=== PATIENT | male | born 1975 | race Caucasian/White ===

== ENCOUNTER 2017-12-22 09:40 | Inpatient (IN) | payer BC, OTHER ==
[2017-12-22] MEDS ORDERED: ONDANSETRON 4 MG INJ IV (10:30)
[2017-12-22] MEDS ORDERED: ALBUTEROL/IPRATROPIUM (NEB) 3 ML AMP HHN (15:30)
[2017-12-22] MEDS: morphine 2 MG INJ IV (16:13)
[2017-12-22] MEDS ORDERED: HYDROmorphONE 0.5 MG/0.5 ML SYG IV (17:30)
[2017-12-22] MEDS ORDERED: ACETAMINOPHEN 650 MG SUPP PR (18:00)
[2017-12-22] MEDS ORDERED: MAGNESIUM HYDROXIDE 30ML CUP PO (18:00)
[2017-12-22] MEDS ORDERED: HYDROCODONE/APAP (5/325) TAB PO (18:00)
[2017-12-22] MEDS ORDERED: BISACODYL (EC) 5 MG TAB PO (18:00)
[2017-12-22] MEDS ORDERED: NACL 0.9% 3 ML SYG IV (18:00)
[2017-12-22] MEDS: SOD CHLORIDE 0.9% 1,000 ML IV (18:07)
[2017-12-22] MEDS: HYDROmorphONE 1 MG/ML SYG IV ×2 (18:07→19:57)
[2017-12-22] MEDS: ALBUTEROL/IPRATROPIUM (NEB) 3 ML AMP HHN (20:00)
[2017-12-22] MEDS: ENOXAPARIN 80 MG/0.8 ML SYG SC (21:06)
[2017-12-23] MEDS: HYDROmorphONE 1 MG/ML SYG IV ×2 (00:53→07:31)
[2017-12-23] MEDS: ACETAMINOPHEN 325 MG TAB PO (00:58)
[2017-12-23] MEDS: ALBUTEROL/IPRATROPIUM (NEB) 3 ML AMP HHN ×4 (01:56→21:06)
[2017-12-23] MEDS: HYDROCODONE/APAP (5/325) TAB PO ×3 (05:58→19:19)
[2017-12-23 06:19] LABS: ADD MAN DIFF? NO
[2017-12-23 06:26] LABS: BASOPHILS % 0.2 % (0.0-2.0); EOSINOPHILS % 0.1 % (0.0-7.0); HEMATOCRIT 35.7 % (42.0-52.0); LYMPHOCYTES # 1.8 10^3/ul (0.8-2.9); MEAN CORPUSCULAR HEMOGLOBIN 31.6 pg (29.0-33.0); MEAN CORPUSCULAR HGB CONC 33.6 g/dl (32.0-37.0); MEAN CORPUSCULAR VOLUME 93.9 fl (82.0-101.0); MEAN PLATELET VOLUME 9.4 fl (7.4-10.4); MONOCYTE # 1.4 10^3/ul (0.3-0.9); MONOCYTES % 11.2 % (0.0-11.0); NEUTROPHIL # 9.3 10^3/ul (1.6-7.5); PLATELET COUNT 160 10^3/UL (140-415); POSITIVE DIFF @See below; RED CELL DISTRIBUTION WIDTH 13.3 % (11.5-14.5)
[2017-12-23 06:26] LABS: WHITE BLOOD COUNT 12.5 10^3/ul (4.8-10.8)
[2017-12-23 07:07] LABS: ALANINE AMINOTRANSFERASE 25 IU/L (13-69); ALBUMIN 3.7 g/dl (3.3-4.9); ALBUMIN/GLOBULIN RATIO 1.27; ALKALINE PHOSPHATASE 54 IU/L (42-121); ANION GAP 15 (8-16); ASPARTATE AMINO TRANSFERASE 19 IU/L (15-46); BLOOD UREA NITROGEN 10 mg/dl (7-20); CALCIUM 8.5 mg/dl (8.4-10.2); CARBON DIOXIDE 26 mmol/L (21-31); CHLORIDE 102 mmol/L (97-110); CREATININE 0.81 mg/dl (0.61-1.24); GLUCOSE 110 mg/dl (70-220); POTASSIUM 4.5 mmol/L (3.5-5.1); SODIUM 138 mmol/L (135-144); TOTAL PROTEIN 6.6 g/dl (6.1-8.1)
[2017-12-23] MEDS: ENOXAPARIN 80 MG/0.8 ML SYG SC ×3 (08:14→21:14)
[2017-12-23] MEDS: SOD CHLORIDE 0.9% 1,000 ML IV (16:50)
[2017-12-23] MEDS: ZOLPIDEM 5 MG TAB PO (22:39)
[2017-12-24] MEDS: ALBUTEROL/IPRATROPIUM (NEB) 3 ML AMP HHN ×4 (01:23→20:26)
[2017-12-24] MEDS: HYDROmorphONE 1 MG/ML SYG IV (04:45)
[2017-12-24 05:04] LABS: ADD MAN DIFF? NO
[2017-12-24 05:13] LABS: WHITE BLOOD COUNT 8.9 10^3/ul (4.8-10.8)
[2017-12-24 05:13] LABS: BASOPHILS % 0.1 % (0.0-2.0); EOSINOPHILS % 0.4 % (0.0-7.0); HEMOGLOBIN 11.2 g/dl (14.0-18.0); LYMPHOCYTES # 1.3 10^3/ul (0.8-2.9); MEAN CORPUSCULAR HEMOGLOBIN 30.5 pg (29.0-33.0); MEAN CORPUSCULAR HGB CONC 32.9 g/dl (32.0-37.0); MEAN CORPUSCULAR VOLUME 92.6 fl (82.0-101.0); MEAN PLATELET VOLUME 9.5 fl (7.4-10.4); MONOCYTE # 0.9 10^3/ul (0.3-0.9); MONOCYTES % 9.8 % (0.0-11.0); NEUTROPHIL # 6.7 10^3/ul (1.6-7.5); NEUTROPHILS % 75.3 % (39.0-77.0); PLATELET COUNT 167 10^3/UL (140-415); RED BLOOD COUNT 3.67 10^6/ul (4.70-6.10); RED CELL DISTRIBUTION WIDTH 12.9 % (11.5-14.5)
[2017-12-24 05:24] LABS: INR 1.17; PROTIME 15.1 Sec (11.9-14.9); PT RATIO 1.2
[2017-12-24 05:34] LABS: PHOSPHORUS 2.7 mg/dl (2.5-4.9)
[2017-12-24 05:34] LABS: MAGNESIUM 2.1 mg/dl (1.7-2.5)
[2017-12-24 05:37] LABS: ANION GAP 15 (8-16); BLOOD UREA NITROGEN 8 mg/dl (7-20); CALCIUM 8.3 mg/dl (8.4-10.2); CARBON DIOXIDE 26 mmol/L (21-31); CHLORIDE 101 mmol/L (97-110); CREATININE 0.74 mg/dl (0.61-1.24); GLUCOSE 96 mg/dl (70-220); POTASSIUM 4.3 mmol/L (3.5-5.1); SODIUM 138 mmol/L (135-144)
[2017-12-24] MEDS: ENOXAPARIN 80 MG/0.8 ML SYG SC ×2 (09:29→22:07)
[2017-12-24] MEDS: HYDROCODONE/APAP (5/325) TAB PO ×2 (13:17→22:17)
[2017-12-24] MEDS: CEFEPIME 1GM/50 ML (PMX) 50 ML IVPB ×2 (13:17→21:59)
[2017-12-24] MEDS: LEVOFLOXACIN 750MG/D5W (PMX) 150 ML IVPB (14:25)
[2017-12-24] MEDS ORDERED: WARFARIN 5 MG TAB PO (17:00)
[2017-12-24] MEDS: ACETAMINOPHEN 325 MG TAB PO (18:15)
[2017-12-24] MEDS: ZOLPIDEM 5 MG TAB PO (23:35)
[2017-12-25] MEDS: ALBUTEROL/IPRATROPIUM (NEB) 3 ML AMP HHN ×4 (01:12→20:31)
[2017-12-25] MEDS: HYDROmorphONE 1 MG/ML SYG IV (03:53)
[2017-12-25 08:04] LABS: ADD MAN DIFF? NO
[2017-12-25] MEDS: CEFEPIME 1GM/50 ML (PMX) 50 ML IVPB ×2 (08:09→20:10)
[2017-12-25 08:19] LABS: BASOPHILS % 0.3 % (0.0-2.0); EOSINOPHILS % 0.4 % (0.0-7.0); HEMATOCRIT 34.9 % (42.0-52.0); HEMOGLOBIN 11.9 g/dl (14.0-18.0); LYMPHOCYTES # 1.3 10^3/ul (0.8-2.9); LYMPHOCYTES % 16.6 % (15.0-51.0); MEAN CORPUSCULAR HGB CONC 34.1 g/dl (32.0-37.0); MEAN CORPUSCULAR VOLUME 90.9 fl (82.0-101.0); MEAN PLATELET VOLUME 9.1 fl (7.4-10.4); MONOCYTE # 0.8 10^3/ul (0.3-0.9); MONOCYTES % 9.9 % (0.0-11.0); NEUTROPHIL # 5.8 10^3/ul (1.6-7.5); NEUTROPHILS % 72.3 % (39.0-77.0); PLATELET COUNT 193 10^3/UL (140-415); RED BLOOD COUNT 3.84 10^6/ul (4.70-6.10)
[2017-12-25] MEDS: ENOXAPARIN 80 MG/0.8 ML SYG SC ×2 (08:28→20:21)
[2017-12-25 08:34] LABS: ANION GAP 15 (8-16); BLOOD UREA NITROGEN 11 mg/dl (7-20); CALCIUM 8.6 mg/dl (8.4-10.2); CARBON DIOXIDE 24 mmol/L (21-31); CHLORIDE 103 mmol/L (97-110); CREATININE 0.77 mg/dl (0.61-1.24); GLUCOSE 88 mg/dl (70-220); POTASSIUM 3.8 mmol/L (3.5-5.1); SODIUM 138 mmol/L (135-144)
[2017-12-25] MEDS: ACETAMINOPHEN 325 MG TAB PO (09:58)
[2017-12-25] MEDS: LEVOFLOXACIN 750MG/D5W (PMX) 150 ML IVPB (15:55)
[2017-12-25] MEDS: HYDROCODONE/APAP (5/325) TAB PO (20:10)
[2017-12-25] MEDS: ZOLPIDEM 5 MG TAB PO (21:04)
[2017-12-26] MEDS: ALBUTEROL/IPRATROPIUM (NEB) 3 ML AMP HHN ×4 (01:40→20:14)
[2017-12-26] MEDS: ENOXAPARIN 80 MG/0.8 ML SYG SC ×2 (09:27→20:37)
[2017-12-26] MEDS: CEFEPIME 1GM/50 ML (PMX) 50 ML IVPB ×2 (09:33→20:28)
[2017-12-26] MEDS: METOPROLOL 5 MG INJ IV (09:41)
[2017-12-26] MEDS: DILTIAZEM (CD) 240 MG CAP PO (12:19)
[2017-12-26] MEDS: ACETAMINOPHEN 325 MG TAB PO ×2 (13:16→18:51)
[2017-12-26] MEDS ORDERED: METOPROLOL 5 MG INJ IV (13:30)
[2017-12-26] MEDS: ENALAPRIL 10 MG TAB PO (13:47)
[2017-12-26] MEDS: LEVOFLOXACIN 750MG/D5W (PMX) 150 ML IVPB (13:48)
[2017-12-26 14:07] LABS: THYROID STIMULATING HORMONE 0.621 MIU/L (0.465-4.680)
[2017-12-26 14:42] LABS: ANION GAP 13 (8-16); BLOOD UREA NITROGEN 9 mg/dl (7-20); CARBON DIOXIDE 27 mmol/L (21-31); CHLORIDE 103 mmol/L (97-110); CREATININE 0.74 mg/dl (0.61-1.24); GLUCOSE 110 mg/dl (70-220); MAGNESIUM 2.4 mg/dl (1.7-2.5); POTASSIUM 4.3 mmol/L (3.5-5.1); SODIUM 139 mmol/L (135-144)
[2017-12-26 14:53] LABS: CALCIUM 8.9 mg/dl (8.4-10.2)
[2017-12-26 19:30] LABS: TROPONIN-I < 0.012 ng/ml (0.00-0.12)
[2017-12-26] MEDS: HYDROCODONE/APAP (5/325) TAB PO (20:28)
[2017-12-26] MEDS: ZOLPIDEM 5 MG TAB PO (22:15)
[2017-12-27 01:36] LABS: TROPONIN-I < 0.012 ng/ml (0.00-0.12)
[2017-12-27] MEDS: ALBUTEROL/IPRATROPIUM (NEB) 3 ML AMP HHN ×4 (01:40→19:41)
[2017-12-27 08:23] LABS: ADD MAN DIFF? NO
[2017-12-27 08:28] LABS: WHITE BLOOD COUNT 7.9 10^3/ul (4.8-10.8)
[2017-12-27 08:28] LABS: BASOPHILS % 0.4 % (0.0-2.0); EOSINOPHILS # 0.1 10^3/ul (0.0-0.5); EOSINOPHILS % 1.5 % (0.0-7.0); HEMATOCRIT 34.5 % (42.0-52.0); HEMOGLOBIN 11.8 g/dl (14.0-18.0); LYMPHOCYTES # 1.3 10^3/ul (0.8-2.9); LYMPHOCYTES % 16.6 % (15.0-51.0); MEAN CORPUSCULAR HEMOGLOBIN 31.2 pg (29.0-33.0); MEAN CORPUSCULAR HGB CONC 34.2 g/dl (32.0-37.0); MEAN CORPUSCULAR VOLUME 91.3 fl (82.0-101.0); MEAN PLATELET VOLUME 9.2 fl (7.4-10.4); MONOCYTE # 0.7 10^3/ul (0.3-0.9); MONOCYTES % 9.1 % (0.0-11.0); NEUTROPHIL # 5.6 10^3/ul (1.6-7.5); PLATELET COUNT 225 10^3/UL (140-415); RED BLOOD COUNT 3.78 10^6/ul (4.70-6.10)
[2017-12-27] MEDS: CEFEPIME 1GM/50 ML (PMX) 50 ML IVPB ×2 (08:41→20:13)
[2017-12-27] MEDS: DILTIAZEM (CD) 240 MG CAP PO (08:42)
[2017-12-27] MEDS: ENALAPRIL 10 MG TAB PO (08:42)
[2017-12-27] MEDS: ENOXAPARIN 80 MG/0.8 ML SYG SC (08:44)
[2017-12-27 08:48] LABS: MAGNESIUM 2.2 mg/dl (1.7-2.5)
[2017-12-27 08:48] LABS: PHOSPHORUS 3.8 mg/dl (2.5-4.9)
[2017-12-27 08:49] LABS: ANION GAP 13 (8-16); BLOOD UREA NITROGEN 8 mg/dl (7-20); CALCIUM 8.5 mg/dl (8.4-10.2); CARBON DIOXIDE 26 mmol/L (21-31); CHLORIDE 104 mmol/L (97-110); CREATININE 0.66 mg/dl (0.61-1.24); GLUCOSE 94 mg/dl (70-220); POTASSIUM 3.7 mmol/L (3.5-5.1); SODIUM 139 mmol/L (135-144)
[2017-12-27 08:52] LABS: CHOLESTEROL 125 mg/dl (100-200)
[2017-12-27 08:52] LABS: CHOL/HDL RATIO 5.6 RATIO; HDL CHOLESTEROL 22 mg/dl (27-67); LDL CHOLESTEROL,CALCULATED 84 mg/dl; TRIGLYCERIDES 96 mg/dl (0-149)
[2017-12-27 08:56] LABS: TROPONIN-I < 0.012 ng/ml (0.00-0.12)
[2017-12-27] MEDS: LEVOFLOXACIN 750MG/D5W (PMX) 150 ML IVPB (14:05)
[2017-12-27] MEDS: ACETAMINOPHEN 325 MG TAB PO (17:22)
[2017-12-27] MEDS: HYDROCODONE/APAP (5/325) TAB PO (20:12)
[2017-12-27] MEDS: APIXABAN 5 MG TABLET PO (20:13)
[2017-12-28] MEDS: ALBUTEROL/IPRATROPIUM (NEB) 3 ML AMP HHN ×4 (02:50→19:56)
[2017-12-28] MEDS: LEVOFLOXACIN 750 MG TABLET PO (06:18)
[2017-12-28] MEDS: ENALAPRIL 10 MG TAB PO (09:24)
[2017-12-28] MEDS: CEFEPIME 1GM/50 ML (PMX) 50 ML IVPB ×2 (09:24→20:49)
[2017-12-28] MEDS: DILTIAZEM (CD) 240 MG CAP PO (09:24)
[2017-12-28] MEDS: APIXABAN 5 MG TABLET PO ×2 (09:24→20:47)
[2017-12-28] MEDS: HYDROCODONE/APAP (5/325) TAB PO (20:48)
[2017-12-29] MEDS: ALBUTEROL/IPRATROPIUM (NEB) 3 ML AMP HHN ×3 (01:14→15:46)
[2017-12-29] MEDS: LEVOFLOXACIN 750 MG TABLET PO (06:25)
[2017-12-29] MEDS: DILTIAZEM (CD) 240 MG CAP PO (08:50)
[2017-12-29] MEDS: APIXABAN 5 MG TABLET PO ×2 (08:51→17:15)
[2017-12-29] MEDS: ENALAPRIL 10 MG TAB PO (08:51)
[2017-12-29] MEDS: CEFEPIME 1GM/50 ML (PMX) 50 ML IVPB (08:55)
[2018-01-03] MEDS ORDERED: APIXABAN 5 MG TABLET PO (09:00)
== END 2017-12-29 17:21 | disposition home or self-care (01) | DRG 175 ==
LOC: E/R 09:40 → MS4 12-24 17:50 → TEL 12-24 21:00 → MS3 10:08
DX: I26.99 Other pulmonary embolism without acute cor pulmonale (principal); J18.9 Pneumonia, unspecified organism; I47.1 Supraventricular tachycardia; E66.01 Morbid (severe) obesity due to excess calories; I10 Essential (primary) hypertension; R09.02 Hypoxemia; Z68.36 Body mass index [BMI] 36.0-36.9, adult; D64.9 Anemia, unspecified; I48.91 Unspecified atrial fibrillation; E78.5 Hyperlipidemia, unspecified
CPT/HCPCS: 71045; 71046; 76775; 80048; 80053; 80061; 82962; 83735; 84100; 84443; 84484; 85025; 85610; 93005; 93306; 93970; 94640; 94664; 99285-25